=== PATIENT | male | born 1965 | race Caucasian/White ===

== ENCOUNTER 2017-02-08 20:41 | Inpatient (IN) | payer BC ==
[2017-02-08] MEDS ORDERED: VANCOMYCIN IV PER PHARMACY XX (23:00)
[2017-02-08] MEDS ORDERED: NACL 0.9% 3 ML SYG IV (23:00)
[2017-02-08] MEDS: ZOSYN PER PHARMACY XX (23:00)
[2017-02-08] MEDS ORDERED: DOCUSATE SODIUM 100 MG CAP PO (23:00)
[2017-02-08] MEDS ORDERED: ONDANSETRON 4 MG INJ IV (23:00)
[2017-02-08] MEDS ORDERED: DEXTROSE 50% 50 ML SYRINGE IV ×2 (23:45)
[2017-02-08] MEDS ORDERED: GLUCOSE GEL 15 GRAM TUBE PO ×2 (23:45)
[2017-02-08] MEDS ORDERED: GLUCOSE GEL 15 GRAM TUBE BUCCAL (23:45)
[2017-02-08] MEDS ORDERED: GLUCAGON 1 MG INJ IM (23:45)
[2017-02-09] MEDS: SOD CHLORIDE 0.9% 1,000 ML IV (00:17)
[2017-02-09] MEDS: INSULIN DETEMIR [LEVEMIR] 3ML CART SC ×2 (00:17→20:27)
[2017-02-09] MEDS: PIPER-TAZO 3.375 GM IV (PMX) 50 ML IVPB ×5 (00:19→23:34)
[2017-02-09] MEDS: VANCOMYCIN 1.5 GM in DEXTROSE 5% 500 ML IVPB (01:31)
[2017-02-09] MEDS: ACCU-CHEK XX (02:00)
[2017-02-09] MEDS: PANTOPRAZOLE (EC) 40 MG TAB PO (05:10)
[2017-02-09] MEDS: ACETAMINOPHEN 325 MG TAB PO ×3 (05:11→20:49)
[2017-02-09 05:57] LABS: ADD MAN DIFF? NO
[2017-02-09 06:05] LABS: WHITE BLOOD COUNT 4.9 10^3/ul (4.8-10.8)
[2017-02-09 06:05] LABS: BASOPHILS % 0.2 % (0.0-2.0); EOSINOPHILS % 0.4 % (0.0-7.0); HEMATOCRIT 35.3 % (42.0-52.0); HEMOGLOBIN 12.2 g/dl (14.0-18.0); LYMPHOCYTES # 1.2 10^3/ul (0.8-2.9); MEAN CORPUSCULAR HGB CONC 34.6 g/dl (32.0-37.0); MEAN CORPUSCULAR VOLUME 95.4 fl (82.0-101.0); MEAN PLATELET VOLUME 9.7 fl (7.4-10.4); MONOCYTE # 0.4 10^3/ul (0.3-0.9); MONOCYTES % 7.6 % (0.0-11.0); NEUTROPHIL # 3.2 10^3/ul (1.6-7.5); NUCLEATED RED BLOOD CELLS% 0.4 /100WBC (0.0-0.0); PLATELET COUNT 103 10^3/UL (140-415); POSITIVE DIFF @See below; RED CELL DISTRIBUTION WIDTH 15.6 % (11.5-14.5)
[2017-02-09 06:28] LABS: ANION GAP 12 (8-16); BLOOD UREA NITROGEN 17 mg/dl (7-20); CALCIUM 8.6 mg/dl (8.4-10.2); CARBON DIOXIDE 30 mmol/L (21-31); CHLORIDE 98 mmol/L (97-110); CREATININE 0.85 mg/dl (0.61-1.24); GLUCOSE 190 mg/dl (70-220); POTASSIUM 4.3 mmol/L (3.5-5.1); SODIUM 136 mmol/L (135-144)
[2017-02-09] MEDS ORDERED: INSULIN ASPART [NOVOLOG] 3 ML PEN SC ×2 (07:30→08:00)
[2017-02-09] MEDS: INSULIN ASPART [NOVOLOG] 3 ML PEN SC ×4 (08:00→21:00)
[2017-02-09] MEDS: ATENOLOL 25 MG TAB PO (08:52)
[2017-02-09] MEDS: VANCOMYCIN 1.25 GM in SODIUM CHLORIDE 0.45 % 250 ML IVPB (14:06)
[2017-02-09] MEDS: morphine 2 MG INJ IV ×2 (14:40→17:12)
[2017-02-09] MEDS: DEXAMETHASONE 4 MG TAB PO ×2 (15:00→22:05)
[2017-02-09] MEDS: EMPAGLIFLOZIN 10 MG TABLET PO (15:00)
[2017-02-09] MEDS: LIDOCAINE 1%/EPI 30 ML INJ INJ (17:21)
[2017-02-09] MEDS: LEVETIRACETAM 500 MG TAB PO (20:26)
[2017-02-10] MEDS: SOD CHLORIDE 0.9% 1,000 ML IV ×2 (01:28→15:00)
[2017-02-10] MEDS: VANCOMYCIN 1.25 GM in SODIUM CHLORIDE 0.45 % 250 ML IVPB ×2 (01:50→15:15)
[2017-02-10] MEDS: ACCU-CHEK XX (02:00)
[2017-02-10] MEDS: PIPER-TAZO 3.375 GM IV (PMX) 50 ML IVPB ×4 (05:21→23:23)
[2017-02-10] MEDS: PANTOPRAZOLE (EC) 40 MG TAB PO (05:21)
[2017-02-10] MEDS: DEXAMETHASONE 4 MG TAB PO ×3 (05:21→20:40)
[2017-02-10 06:21] LABS: ADD MAN DIFF? NO
[2017-02-10 06:38] LABS: WHITE BLOOD COUNT 5.8 10^3/ul (4.8-10.8)
[2017-02-10 06:38] LABS: BASOPHILS % 0.5 % (0.0-2.0); HEMATOCRIT 37.6 % (42.0-52.0); LYMPHOCYTES # 0.9 10^3/ul (0.8-2.9); LYMPHOCYTES % 15.6 % (15.0-51.0); MEAN CORPUSCULAR HEMOGLOBIN 32.6 pg (29.0-33.0); MEAN CORPUSCULAR HGB CONC 34.6 g/dl (32.0-37.0); MEAN CORPUSCULAR VOLUME 94.2 fl (82.0-101.0); MONOCYTE # 0.2 10^3/ul (0.3-0.9); MONOCYTES % 4.2 % (0.0-11.0); NEUTROPHIL # 4.5 10^3/ul (1.6-7.5); NEUTROPHILS % 78.5 % (39.0-77.0); PLATELET COUNT 102 10^3/UL (140-415); POSITIVE DIFF @See below; RED BLOOD COUNT 3.99 10^6/ul (4.70-6.10)
[2017-02-10 07:09] LABS: ANION GAP 16 (8-16); BLOOD UREA NITROGEN 19 mg/dl (7-20); CARBON DIOXIDE 24 mmol/L (21-31); CHLORIDE 101 mmol/L (97-110); CREATININE 0.76 mg/dl (0.61-1.24); GLUCOSE 173 mg/dl (70-220); POTASSIUM 4.2 mmol/L (3.5-5.1); SODIUM 137 mmol/L (135-144)
[2017-02-10 07:24] LABS: PHOSPHORUS 3.9 mg/dl (2.5-4.9)
[2017-02-10 07:24] LABS: MAGNESIUM 1.9 mg/dl (1.7-2.5)
[2017-02-10] MEDS: INSULIN ASPART [NOVOLOG] 3 ML PEN SC ×4 (08:08→20:43)
[2017-02-10] MEDS: EMPAGLIFLOZIN 10 MG TABLET PO (08:49)
[2017-02-10] MEDS: LEVETIRACETAM 500 MG TAB PO ×2 (08:49→20:39)
[2017-02-10] MEDS: ATENOLOL 25 MG TAB PO (08:50)
[2017-02-10 09:27] LABS: BAND NEUTROPHILS #M 1.2 10^3/ul (0.0-0.6); BAND NEUTROPHILS % (M) 21 % (0-4); LYMPHOCYTES #M 0.5 10^3/ul (0.8-2.9); LYMPHOCYTES % (M) 10 % (15-51); METAMYELOCYTES #M 0.1 10^3/ul (0.0-0.0); METAMYELOCYTES %M 2 % (0-0); MONOCYTE #M 0.5 10^3/ul (0.3-0.9); MONOCYTES % (M) 10 % (0-11); MYELOCYTES % (M) 1 % (0-0); PLATELET ESTIMATE DECREASED; POLYCHROMASIA 1+ (0-0); REACTIVE LYMPHOCYTES #M 0.2 10^3/ul (0.0-0.0); REACTIVE LYMPHOCYTES% (M) 5 % (0-0); SEGMENTED NEUTROPHILS (M) % 51 % (39-77)
[2017-02-10] MEDS: ACETAMINOPHEN 325 MG TAB PO (12:31)
[2017-02-10] MEDS: SODIUM HYPOCHLORITE 0.125% 473 ML BTL IRR (14:34)
[2017-02-10] MEDS: morphine 2 MG INJ IV (14:54)
[2017-02-10 15:11] LABS: VANCOMYCIN,TROUGH 8.7 ug/ml (10.0-20.0)
[2017-02-10] MEDS: INSULIN DETEMIR [LEVEMIR] 3ML CART SC (20:42)
[2017-02-11] MEDS: VANCOMYCIN 1 GM in SODIUM CHLORIDE 0.45 % 250 ML IVPB ×2 (00:25→08:28)
[2017-02-11] MEDS: ACCU-CHEK XX (02:06)
[2017-02-11] MEDS: PIPER-TAZO 3.375 GM IV (PMX) 50 ML IVPB (05:20)
[2017-02-11] MEDS: PANTOPRAZOLE (EC) 40 MG TAB PO (05:20)
[2017-02-11] MEDS: DEXAMETHASONE 4 MG TAB PO ×2 (05:20→14:32)
[2017-02-11] MEDS: ACETAMINOPHEN 325 MG TAB PO ×3 (05:20→14:32)
[2017-02-11 07:00] LABS: ADD MAN DIFF? NO
[2017-02-11 07:07] LABS: WHITE BLOOD COUNT 6.2 10^3/ul (4.8-10.8)
[2017-02-11 07:07] LABS: BASOPHILS % 0.2 % (0.0-2.0); HEMATOCRIT 36.8 % (42.0-52.0); LYMPHOCYTES # 1.1 10^3/ul (0.8-2.9); LYMPHOCYTES % 17.1 % (15.0-51.0); MEAN CORPUSCULAR HEMOGLOBIN 32.8 pg (29.0-33.0); MEAN CORPUSCULAR HGB CONC 35.3 g/dl (32.0-37.0); MEAN CORPUSCULAR VOLUME 92.9 fl (82.0-101.0); MEAN PLATELET VOLUME 10.3 fl (7.4-10.4); MONOCYTE # 0.2 10^3/ul (0.3-0.9); MONOCYTES % 3.7 % (0.0-11.0); NEUTROPHIL # 4.8 10^3/ul (1.6-7.5); NEUTROPHILS % 77.7 % (39.0-77.0); PLATELET COUNT 114 10^3/UL (140-415); POSITIVE DIFF @See below; RED BLOOD COUNT 3.96 10^6/ul (4.70-6.10); RED CELL DISTRIBUTION WIDTH 15.4 % (11.5-14.5)
[2017-02-11 07:31] LABS: PHOSPHORUS 3.2 mg/dl (2.5-4.9)
[2017-02-11 07:31] LABS: MAGNESIUM 2.2 mg/dl (1.7-2.5)
[2017-02-11 07:32] LABS: ANION GAP 18 (8-16); BLOOD UREA NITROGEN 23 mg/dl (7-20); CALCIUM 8.8 mg/dl (8.4-10.2); CARBON DIOXIDE 21 mmol/L (21-31); CHLORIDE 104 mmol/L (97-110); GLUCOSE 147 mg/dl (70-220); POTASSIUM 5.3 mmol/L (3.5-5.1); SODIUM 138 mmol/L (135-144)
[2017-02-11] MEDS: INSULIN ASPART [NOVOLOG] 3 ML PEN SC ×3 (08:28→17:33)
[2017-02-11] MEDS: EMPAGLIFLOZIN 10 MG TABLET PO (08:29)
[2017-02-11] MEDS: ATENOLOL 25 MG TAB PO (08:29)
[2017-02-11] MEDS: NA POLYST SULFON 15 GM/60 ML BTL PO (08:29)
[2017-02-11] MEDS: LEVETIRACETAM 500 MG TAB PO (08:29)
[2017-02-11] MEDS: SODIUM HYPOCHLORITE 0.125% 473 ML BTL IRR (08:30)
[2017-02-11] MEDS ORDERED: VANCOMYCIN 1 GM in SOD CHLORIDE 0.9% 250 ML IVPB ×2 (09:00→16:00)
[2017-02-11] MEDS: SOD CHLORIDE 0.9% 1,000 ML IV (12:03)
[2017-02-11] MEDS: CEFTRIAXONE 1 GM/50 ML (PMX) 50 ML IVPB (12:04)
[2017-02-11] MEDS ORDERED: VANCOMYCIN 1 GM 250 ML IVPB (16:00)
[2017-02-12] MEDS ORDERED: LEVOFLOXACIN 500 MG TAB PO (06:00)
== END 2017-02-11 18:19 | disposition home health service (06) | DRG 580 ==
LOC: PP2 20:41
PROVIDERS: Internal Medicine Nephrology
PROC: 0J990ZZ Drainage of Buttock Subcutaneous Tissue and Fascia, Open Approach (ICD-10-PCS; principal; 2017-02-09)
DX: L02.31 Cutaneous abscess of buttock (principal); C71.9 Malignant neoplasm of brain, unspecified; E11.8 Type 2 diabetes mellitus with unspecified complications; D69.59 Other secondary thrombocytopenia; B95.61 Methicillin susceptible Staphylococcus aureus infection as the cause of diseases classified elsewhere; L03.317 Cellulitis of buttock; Z79.899 Other long term (current) drug therapy; D64.9 Anemia, unspecified; T45.1X5A Adverse effect of antineoplastic and immunosuppressive drugs, initial encounter
CPT/HCPCS: 80048; 80202; 82962; 83735; 84100; 85025; 87070